=== PATIENT | male | born 1985 | race Caucasian/White ===

== ENCOUNTER → 2017-07-02 | Outpatient (CLI) | payer BC ==
[~2017-07-02] MED LIST: MULT-513 PO
--- NOTE | 2017-07-02 10:23 | DIAGNOSTIC IMAGING REPORT ---
(RENAL)RETROPERITON COMP CLINICAL HISTORY: 31 years-old Male presenting with R31.29 Hematuria, [id number] Kidney cyst, [id number]. TECHNIQUE: Real-time grayscale and limited color Doppler ultrasound imaging of the kidneys and bladder was performed. COMPARISON: 11/09/2015. FINDINGS: Right kidney: Normal echogenicity. Right kidney measures 11.6 cm. No hydronephrosis. 2 adjacent parapelvic cysts, the larger measuring 1.6 cm, which are simple appearing. 5 mm hyperechogenic shadowing focus with twinkling artifact consistent with renal calculus at the lower pole. Additional 4 mm renal calculus in the interpolar region anteriorly. Normal perfusion. Left kidney: Normal echogenicity. Left kidney measures 2.4 cm. No hydronephrosis. 1.8 cm simple cyst at the lower pole. The suspected presence of multiple left renal calculi are not as well demonstrated in comparison to the right. Normal perfusion. Bladder: No bladder wall thickening. Bilateral ureteral jets present. Other: Prominent prostate. IMPRESSION: 1. Simple renal cysts bilaterally. These are not significantly changed from prior exam. 2. Suspected bilateral nephrolithiasis. Electronically signed by: Albert Hamilton M.D. 07/02/2017 10:22 AM Dictated Date/Time: 07/02/2017 10:17 AM
== END | disposition home or self-care (01) ==
LOC: C.ULTR 09:26
PROVIDERS: ATTEND Internal Medicine Nephrology
DX: N28.1 Cyst of kidney, acquired (principal); R31.29 Other microscopic hematuria